=== PATIENT | male | born 1950 | race Caucasian/White ===

== ENCOUNTER 2019-07-12 00:33 | Inpatient (IN) | payer MEDICARE, OTHER ==
[~2019-07-12] VITALS: Ht 193 cm; Wt 104.3 kg
[~2019-07-12 00:33] MED LIST: ASPIR 8181 MG PO; ASPIRIN ENTERI325 MG PO; BENICAR HCT 401 EAC1 PO; BENICAR20 MG PO; EFFIENT10 MG PO; LIPITOR40 MG PO; METOPROLOL SUCC50 MG PO; PROTONIX40 MG PO; SUCRALFATE1 GM PO; TOPROL XL50 MG PO; ZESTRIL20 MG PO
[2019-07-12] MEDS ORDERED: HYDROCODONE/APAP 10MG-325MG TAB PO ONE (01:00)
[2019-07-12] MEDS ORDERED: ONDANSETRON HCL 4 MG ORAL DISINTEGRATING TAB PO ONE (01:15)
--- NOTE | 2019-07-12 02:12 | Diagnostic Imaging Report ---
EXAMINATION: Head and cervical spine CT without contrast. HISTORY: Status post fall, head trauma, head and neck pain, shoulder pain COMPARISON: Head CT 09/23/2015 TECHNIQUE: Multidetector axial images were obtained without contrast from the foramen magnum to the vertex and through the cervical spine. The images were reconstructed using brain and bone algorithms. Thin section brain images were reformatted into coronal and sagittal planes. Dose modulation, iterative reconstruction, and/or weight based adjustment of the mA/kV was utilized to reduce the radiation dose to as low as reasonably achievable. HEAD CT FINDINGS: Skull/scalp: Heterogeneous bone marrow density throughout the calvarium, which may be related to osteopenia, no significantly changed compared to head CT of 09/23/2015. Parenchyma: Diffuse corticomedullary hypodensities, most likely age-related minimal chronic microvascular ischemic changes. Otherwise no abnormal densities. No mass, hemorrhage or CT evidence of acute vascular insult. Brain volume: Normal for age. Ventricles: No hydrocephalus or displacement. Arteries: No density suggestive of thrombus. Dural sinuses: No abnormal density. Extra-axial spaces: No abnormal density. Foramen magnum: No mass, Chiari malformation, or basilar invagination. Sella: No obvious mass. Paranasal/mastoid sinuses: Imaged portions unremarkable. CERVICAL SPINE CT FINDINGS: Alignment:Reversal of the cervical lordosis centered at C4-C5. Minimal retrolisthesis at C5-6.. Soft tissues: Normal. Vertebrae: Normal height and density. No acute fracture, infection or neoplasm. Degenerative changes: C1-C2: Normal C2-C3: Normal C3-C4: Bilateral uncovertebral and facet arthrosis minimally on the right side. Minimal right foraminal narrowing. C4-C5: Small disc osteophyte complex formation asymmetric to the right. Uncovertebral arthroses mainly on the right. Mild right foraminal narrowing. C5-C6: Small disc osteophyte formation, bilateral uncovertebral arthrosis. Moderate right and moderately severe left foraminal stenosis. C6-C7: Uncovertebral arthrosis without stenosis. C7-T1: Normal Incidental findings: Prominent ossification of the right styloid process reaching the level of the hyoid bone on the right side. IMPRESSION: Head CT: 1. No acute postraumatic intracranial hemorrhage. 2. Mild chronic microvascular ischemic changes. Cervical spine CT: 1. No acute fractures or dislocations. 2. Chronic degenerative changes as described. Note: Acute post traumatic spinal cord, vascular or ligamentous injury cannot adequately be assessed with CT. Signed by: Dr. Quin Magana M.D. on 07/12/2019 2:09 AM
[2019-07-12] MEDS ORDERED: FENTANYL CITRATE/PF 100MCG/2 ML INJ IV ONE ×2 (02:45→03:15)
--- NOTE | 2019-07-12 02:46 | Diagnostic Imaging Report ---
X-ray left elbow 2 views HISTORY: Pain. COMPARISON: None available. FINDINGS: Bones: No acute displaced fracture. Osseous alignment is within normal limits. Olecranon and epicondylar enthesophytes. Joints: The joint spaces are well-maintained. Soft tissues: The soft tissues appear unremarkable. IMPRESSION: No acute radiographic osseous abnormality. Olecranon and epicondylar enthesopathy. Signed by: Dwaine Schmitz DO on 07/12/2019 2:43 AM
--- NOTE | 2019-07-12 02:49 | Diagnostic Imaging Report ---
X-RAY LEFT SHOULDER 3 VIEWS HISTORY: Pain. COMPARISON: None available. FINDINGS: Bones: Probable nondisplaced fracture fragment at the anterior inferior glenoid rim. Osseous alignment is within normal limits. Joints: The humeral head is dislocated anteroinferiorly in relation to the glenoid. Soft tissues: The soft tissues appear unremarkable. IMPRESSION: Anteroinferior shoulder dislocation. Suspect anteroinferior glenoid rim fracture (Bankart injury). Signed by: Dwaine Schmitz DO on 07/12/2019 2:45 AM
--- NOTE | 2019-07-12 02:50 | Diagnostic Imaging Report ---
EXAMINATION: CHEST SINGLE (PORTABLE) INDICATION: Fall COMPARISON: None FINDINGS: AP view TUBES and LINES: None. LUNGS: Lungs are well inflated. Lungs are clear. There is no evidence of pneumonia or pulmonary edema. PLEURA: No pleural effusion or pneumothorax. HEART AND MEDIASTINUM: The cardiomediastinal silhouette is unremarkable. BONES AND SOFT TISSUES: Anteroinferior left shoulder dislocation. Suspect ossific fragment at the anterior inferior glenoid rim. No acute osseous lesion. Soft tissues are unremarkable. UPPER ABDOMEN: No free air under the diaphragm. IMPRESSION: No acute intrathoracic radiographic abnormality. Anteroinferior shoulder dislocation. Suspect anteroinferior glenoid rim fracture (Bankart injury). Signed by: Dwaine Schmitz DO on 07/12/2019 2:46 AM
[2019-07-12] MEDS ORDERED: ETOMIDATE 2 MG/ML 10 ML INJ IV STA (03:10)
--- NOTE | 2019-07-12 03:20 | NUR ---
PT WIFES SIGNED CONSENT FOR CONSCIOUS SEDATION - CONSENT PLACED IN CHART
--- NOTE | 2019-07-12 03:28 | NUR ---
PT PLACED IN CONSCIOUS SEDATION; DR SILVA IN ROOM TO ADMINISTER 10MG ETOMIDATE IVP AT 0328; PT ALSO GIVEN 100MCG FENTANYL IVP; RESPIRATORY IN ROOM READY WITH SUCTION AND AMBUBAG; LT SHOULDER REDUCED AND PLACED IN SHOULDER IMMOBILIZER; POST REDUCTION XRAYS PENDING
[2019-07-12] MEDS ORDERED: ONDANSETRON HCL INJ 2MG/ML 2ML 2 MG/ML VIAL ONE (03:43)
[2019-07-12 03:54] LABS: BASOPHILS % 0.3 % (0.0-1.0); EOSINOPHILS % 0.3 % (0.0-6.0); HEMATOCRIT 30.4 % (38.2-49.6); HEMOGLOBIN 10.8 g/dL (14.0-18.0); LYMPHOCYTES # (AUTO) 1.7 (1.0-3.2); LYMPHOCYTES % 14.6 % (18.0-39.1); MEAN CORPUSCULAR HEMOGLOBIN 31.9 pg (28-32); MEAN CORPUSCULAR HGB CONC 35.5 g/dL (31-35); MEAN CORPUSCULAR VOLUME 89.7 fL (81-99); MONOCYTES # (AUTO) 0.5 (0.2-0.8); MONOCYTES % 4.4 % (4.4-11.3); NEUTROPHILS # (AUTO) 9.3 (2.1-6.9); PLATELET COUNT 233 x10e3/uL (140-360); RED BLOOD COUNT 3.39 x10e6/uL (4.3-5.7); RED CELL DISTRIBUTION WIDTH 11.8 % (11.7-14.4)
[2019-07-12 04:05] LABS: INR 0.96; PROTHROMBIN TIME 13.3 seconds (11.9-14.5)
[2019-07-12 04:06] LABS: PARTIAL THROMBOPLASTIN TIME 24.5 seconds (23.8-35.5)
[2019-07-12 04:13] LABS: ANION GAP 14.1 mmol/L (8-16); BLOOD UREA NITROGEN 6 mg/dL (7-26); BUN/CREATININE RATIO 13 (6-25); CALCIUM 8.8 mg/dL (8.4-10.2); CARBON DIOXIDE 17 mmol/L (22-29); CHLORIDE 80 mmol/L (98-107); CREATININE, SERUM 0.47 mg/dL (0.72-1.25); EST GLOMERULAR FILTRATION RATE > 60 ML/MIN (60-); GLUCOSE 122 mg/dL (74-118); POTASSIUM 3.1 mmol/L (3.5-5.1)
[2019-07-12 04:15] LABS: SODIUM 108 mmol/L (136-145)
--- NOTE | 2019-07-12 04:28 | Diagnostic Imaging Report ---
X-RAY LEFT SHOULDER 1 VIEW HISTORY: Pain. COMPARISON: Left shoulder radiographs 07/12/2019 FINDINGS: Bones: No acute displaced fracture. Suspect a small ossific fragment along the inferior glenoid rim. Osseous alignment is within normal limits. Joints: The joint spaces are well-maintained. Resolution of left shoulder dislocation. Mild degenerative changes in the acromioclavicular joint. Soft tissues: The soft tissues appear unremarkable. IMPRESSION: Normal shoulder alignment. Suspect inferior glenoid fracture (bony Bankart lesion). Mild degenerative changes in the acromioclavicular joint. Signed by: Dwaine Schmitz DO on 07/12/2019 4:25 AM
[2019-07-12 04:50] LABS: ANION GAP 17.3 mmol/L (8-16); BLOOD UREA NITROGEN 13 mg/dL (7-26); BUN/CREATININE RATIO 12 (6-25); CALCIUM 9.2 mg/dL (8.4-10.2); CARBON DIOXIDE 21 mmol/L (22-29); CHLORIDE 86 mmol/L (98-107); EST GLOMERULAR FILTRATION RATE > 60 ML/MIN (60-); GLUCOSE 119 mg/dL (74-118); POTASSIUM 3.3 mmol/L (3.5-5.1)
[2019-07-12 04:57] LABS: CREATININE, SERUM 1.06 mg/dL (0.72-1.25)
[2019-07-12 04:58] LABS: SODIUM 121 mmol/L (136-145)
[2019-07-12] MEDS ORDERED: MULTIVITAMINS- 12 INJECTION 10 ML, FOLIC ACID MDV 5 MG, THIAMINE HCL INJ 100 MG in SODI... IV ONE (05:15)
[2019-07-12] MEDS ORDERED: POTASSIUM CHLORIDE 20 MEQ TAB CR PO STA (05:19)
[2019-07-12] MEDS ORDERED: SODIUM CHLORIDE FLUSH 10 ML SYR INJ PRN (05:30)
--- OUTSIDE RECORDS SUMMARY | 2019-07-12 05:40 | XMS REPORT ---
Author Author [facility] Address Unknown Phone Unavailable Care Team Providers Care Hog Ringer Name Role Phone Annabelle SILVA Unavailable Unavailable Problems This patient has no known problems. Allergies, Adverse Reactions, Alerts This patient has no known allergies or adverse reactions. Medications This patient has no known medications. Results Test Description Test Time Test Comments Text Results Atomic Results Result Comments SHOULDER LEFT 1 VIEW 2019-07-12 04:24:00 [facility] [address] [address] Patient Name: REBEL GUADALUPE JR MR #: [id number] : 1950 Age/Sex: 68/M Req #: [id number] [facility] Physician: Ordered by: PREMA SILVA MD Report #: [id number] Location: ER Room/Bed: Procedure: [id number] DX/SHOULDER LEFT 1 VIEW Exam Date: Exam Time: REPORT STATUS: Signed X-RAY LEFT SHOULDER 1 VIEW HISTORY: Pain. COMPARISON: Left shoulder radiographs 07/12/2019 FINDINGS: Bones: No acute displaced fracture. Suspect a small ossific fragment along the inferior glenoid rim. Osseous alignment is within normal limits. Joints: The joint spaces are well-maintained. Resolution of left shoulder dislocation. Mild degenerative changes in the acromioclavicular joint. Soft tissues: The soft tissues appear unremarkable. IMPRESSION: Normal shoulder alignment. Suspect inferior glenoid fracture (bony Bankart lesion). Mild degenerative changes in the acromioclavicular joint. Signed by: Dwaine Schmitz DO on 07/12/2019 4:25 AM Dictated By: DWAINE SCHMITZ DO 4 Transcribed By: BHAVANI on 07/12/19424 COPY TO: PREMA SILVA MD CHEST SINGLE (PORTABLE) 2019-07-12 02:45:00 [address] [address] Patient Name: REBEL GUADALUPE JR MR #: [id number] : 1950 Age/Sex: 68/M Req #: [id number] Adm Physician: Ordered by: PREMA SILVA MD Report #: [id number] Location: ER Room/Bed: Procedure: [id number] DX/CHEST SINGLE (PORTABLE) Exam Date: 07/12/19 Exam Time: 0200 REPORT STATUS: Signed EXAMINATION: CHEST SINGLE (PORTABLE) INDICATION: Fall COMPARISON: None FINDINGS: AP view TUBES and LINES: None. LUNGS: Lungs are well inflated. Lungs are clear. There is no evidence of pneumonia or pulmonary edema. PLEURA: No pleural effusion or pneumothorax. HEART AND MEDIASTINUM: The cardiomediastinal silhouette is unremarkable. BONES AND SOFT TISSUES: Anteroinferior lef t shoulder dislocation. Suspect ossific fragment at the anterior inferior glenoid rim. No acute osseous lesion. Soft tissues are unremarkable. UPPER ABDOMEN: No free air under the diaphragm. IMPRESSION: No acute intrathoracic radiographic abnormality. Anteroinferior shoulder dislocation. Suspect anteroinferior glenoid rim fracture (Bankart injury). Signed by: Dwaine Schmitz DO on 07/12/2019 2:46 AM Dictated By: DWAINE SCHMITZ DO 5 Transcribed By: BHAVANI on 07/12/19245 COPY TO: PREMA CHEN MD SHOULDER LEFT COMPLETE 2019-07-12 02:43:00 [facility] [address] [address] Patient Name: REBEL GUADALUPE JR MR #: [id number] : 1950 Age/Sex: 68/M Req #: [id number] Adm Physician: Ordered by: PREMA SILVA MD Report #: [id number] Location: ER Room/Bed: Procedure: [id number] DX/SHOULDER LEFT COMPLETE Exam Date: 07/12/19 Exam Time: 0200 REPORT STATUS: Signed X-RAY LEFT SHOULDER 3 VIEWS HISTORY: Pain. COMPARISON: None available. FINDINGS: Bones: Probable nondisplaced fracture fragment at the anterior inferior glenoid rim. Osseous alignment is within normal limits. Joints: The humeral head is dislocated anteroinferiorly in relation to the glenoid. Soft tissues: The soft tissues appear unremarkable. IMPRESSION: Anteroinferior shoulder dislocation. Suspect anteroinferior glenoid rim fracture (Bankart injury). Signed by: Dwaine Schmitz DO on 07/12/2019 2:45 AM Dictated By: DWAINE SCHMITZ DO 4 Transcribed By: BHAVANI on 07/12/19244 COPY TO: PREMA SILVA MD ELBOW LEFT AP LAT 2019-07-12 02:41:00 [address] [address] Patient Name: REBEL GUADALUPE JR MR #: [id number] : 1950 Age/Sex: 68/M Req #: [id number] Adm Physician: Ordered by: PREMA SILVA MD Report #: [id number] Location: ER Room/Bed: Procedure: [id number] DX/ELBOW LEFT AP LAT Exam Date: 07/12/19 Exam Time: 0200 REPORT STATUS: Signed X-ray left elbow 2 views HISTORY: Pain. COMPARISON: None available. FINDINGS: Bones: No acute displaced fracture. Osseous alignment is within normal limits. Olecranon and epicondylar enthesophytes. Joints: The joint spaces are well-maintained. Soft tissues: The soft tissues appear unremarkable. IMPRESSION: No acute radiographic osseous abnormality. Olecranon and epicondylar enthesopathy. Signed by: Dwaine Schmitz DO on 07/12/2019 2:43 AM Dictated By: DWAINE SCHMITZ DO 2 Transcribed By: BHAVANI on 07/12/19242 COPY TO: PREMA SILVA MD CT BRAIN WO 2019-07-12 02:01:00 [place] [address] Patient Name: REBEL GUADALUPE JR MR #: [id number] : 1950 Age/Sex: 68/M Req #: [id number] Adm Physician: Ordered by: PREMA SILVA MD Report #: [id number] Location: ER Room/Bed: Procedure: [id number] CT/CT BRAIN WO Exam Date: Exam Time: REPORT STATUS: Signed EXAMINATION: Head and cervical spine CT without contrast. HISTORY: Status post fall, head trauma, head and neck pain, shoulder pain COMPARISON: Head CT 09/23/2015 TECHNIQUE: Multidetector axial images were obtained without contrast from the foramen magnum to the vertex and through the cervical spine. The images were reconstructed using brain and bone algorithms. Thin section brain images were reformatted into coronal and sagittal planes. Dose modula tion, iterative reconstruction, and/or weight based adjustment of the mA/kV was utilized to reduce the radiation dose to as low as reasonably achievable. HEAD CT FINDINGS: Skull/scalp: Heterogeneous bone marrow density throughout the calvarium, which may be related to osteopenia, no significantly changed compared to head CT of 09/23/2015. Parenchyma: Diffuse corticomedullary hypodensities, most likely age-related minimal chronic microvascular ischemic changes. Otherwise no abnormal densities. No mass, hemorrhage or CT evidence of acute vascular insult. Brain volume: Normal for age. Ventricles: No hydrocephalus or displacement. Arteries: No density suggestive of thrombus. Dural sinuses: No abnormal density. Extra-axial spaces: No abnormal density. Foramen magnum: No mass, Chiari malformation, or basilar invagination. Sella: No obvious mass. Paranasal/mastoid sinuses: Imaged portions unremarkable. CERVICAL SPINE CT FINDINGS: Alignment:Reversal of the cervical lordosis centered at C4-C5. Minimal retrolisthesis at C5-6.. Soft tissues: Normal. Vertebrae: Normal height and density. No acute fracture, infection or neoplasm. Degenerative changes: C1-C2: Normal C2-C3: Normal C3-C4: Bilateral uncovertebral and facet arthrosis minimally on the right side. Minimal right foraminal narrowing. C4-C5: Small disc osteophyte complex formation asymmetric to the right. Uncovertebral arthroses mainly on the right. Mild right foraminal narrowing. C5-C6: Small disc osteophyte formation, bilateral uncovertebral arthrosis. Moderate right and moderately severe left foraminal stenosis. C6-C7: Uncovertebral arthrosis without stenosis. C7-T1: Normal Incidental findings: Prominent ossification of the right styloid process reaching the level of the hyoid bone on the right side. IMPRESSION: Head CT: 1. No acute postraumatic intracranial hemorrhage. 2. Mild chronic microvascular ischemic changes. Cervical spine CT: 1. No acute fractures or dislocations. 2. Chronic degenerative changes as described. Note: Acute post traumatic spinal cord, vascular or ligamentous injury cannot adequately be assessed with CT. Signed by: Dr. Lion Magana M.D. on 07/12/2019 2:09 AM Dictated By: YOEL MAGANA MD 8 Transcribed By: BHAVANI on 07/12/19208 COPY TO: PREMA SILVA MD CT CERVICAL SPINE WO 2019-07-12 02:01:00 [address] [address] Patient Name: REBEL GUADALUPE JR MR #: [id number] : 1950 Age/Sex: 68/M Req #: [id number] Adm Physician: Ordered by: PREMA SILVA MD Report #: [id number] Location: ER Room/Bed: Procedure: [id number] CT/CT CERVICAL SPINE WO Exam Date: Exam Time: REPORT STATUS: Signed EXAMINATION: Head and cervical spine CT without contrast. HISTORY: Status post fall, head trauma, head and neck pain, shoulder pain COMPARISON: Head CT 09/23/2015 TECHNIQUE: Multidetector axial images were obtained without contrast from the foramen magnum to the vertex and through the cervical spine. The images were reconstructed using brain and bone algorithms. Thin section brain images were reformatted into coronal and sagittal planes. Dose modulation, iterative reconstruction, and/or weight based adjustment of the mA/kV was utilized to reduce the radiation dose to as low as reasonably achievable. HEAD CT FINDINGS: Skull/scalp: Heterogeneous bone marrow density throughout the calvarium, which may be related to osteopenia, no significantly changed compared to head CT of 09/23/2015. Parenchyma: Diffuse corticomedullary hypodensities, most likely age-related minimal chronic microvascular ischemic changes. Otherwise no abnormal densities. No mass, hemorrhage or CT evidence of acute vascular insult. Brain volume: Normal for age. Ventricles: No hydrocephalus or displacement. Arteries: No density suggestive of thrombus. Dural sinuses: No abnormal density. Extra-axial spaces: No abnormal density. Foramen magnum: No mass, Chiari malformation, or basilar invagination. Sella: No obvious mass. Paranasal/mastoid sinuses: Imaged portions unremarkable. CERVICAL SPINE CT FINDINGS: Alignment:Reversal of the cervical lordosis centered at C4-C5. Minimal retrolisthesis at C5-6.. Soft tissues: Normal. Vertebrae: Normal height and density. No acute fracture, infection or neoplasm. Degenerative changes: C1-C2: Normal C2-C3: Normal C3-C4: Bilateral uncovertebral and facet arthrosis minimally on the right side. Minimal right foraminal narrowing. C4-C5: Small disc osteophyte complex formation asymmetric to the right. Uncovertebral arthroses mainly on the right. Mild right foraminal narrowing. C5-C6: Small disc osteophyte formation, bilateral uncovertebral arthrosis. Moderate right and moderately severe left foraminal stenosis. C6-C7: Uncovertebral arthrosis without stenosis. C7-T1: Normal Incidental findings: Prominent ossification of the right styloid process reaching the level of the hyoid bone on the right side. IMPRESSION: Head CT: 1. No acute postraumatic intracranial hemorrhage. 2. Mild chronic microvascular ischemic changes. Cervical spine CT: 1. No acute fractures or dislocations. 2. Chronic degenerative changes as described. Note: Acute post traumatic spinal cord, vascular or ligamentous injury cannot adequately be assessed with CT. Signed by: Dr. Lion Magana M.D. on 07/12/2019 2:09 AM Dictated By: LION MAGANA MD 8 Transcribed By: BHAVANI on 07/12/19208 COPY TO: PREMA SILVA MD
[2019-07-12] MEDS: ONDANSETRON HCL INJ 2MG/ML 2ML 2 MG/ML VIAL IV PRN ×3 (06:25→20:13)
[2019-07-12] MEDS: HYDROMORPHONE 1MG/1ML INJ IV PRN ×3 (06:25→20:14)
[2019-07-12] MEDS ORDERED: SODIUM CHLORIDE 0.9% 1000ML 1,000 ML IV SCH (07:15)
[2019-07-12] MEDS ORDERED: PROMETHAZINE 25MG/ NS 50ML (IV) IV PRN (07:15)
[2019-07-12 07:50] VITALS: BP 146/71
[2019-07-12 09:00] VITALS: BP 146/71
[2019-07-12] MEDS ORDERED: PANTOPRAZOLE SODIUM 40 MG SUSPDR.PKT PO SCH (09:00)
[2019-07-12] MEDS ORDERED: SUCRALFATE 1 GM TAB PO SCH (09:00)
[2019-07-12] MEDS ORDERED: LOSARTAN POTASSIUM 100 MG TAB PO SCH (09:00)
[2019-07-12] MEDS ORDERED: AMLODIPINE BESYL5 MG PO (09:43)
[2019-07-12] MEDS ORDERED: LOSARTAN POTAS100 MG PO (09:43)
[2019-07-12] MEDS ORDERED: ATORVASTATIN CA20 MG PO (09:43)
--- NOTE | 2019-07-12 10:53 | NUR ---
ORTHOPEDIC CONSULTATION 68 yo right hand dominant male presents to the ED after a mechanical fall with complaints of left shoulder pain. He was diagnosed with a left shoulder dislocation which was reduced in the ED by Dr. Merlos. Patient admitted for hyponatremia. Denies previous injury to the shoulder, numbness, parethesias or loss of distal motor function. Denies pain in any other extremity PMdHx: HTN, CAD SurgHx: Stents, Appendectomy Allergies: Diphenhydramine FamHx: Non-contributory SocHx: Neg Tob, EtOH - 6 beers per day, Neg Drug Meds: See reconciliation VS T 96.2, HR 63 RR 20 BP 146/71 O2 96% Gen: NAD Left Shoulder - no open lesions or sores, no gross deformity Motor: + AIN, PIN, Radial, Median, Ulnar Sensation grossly intact, Axillary sensation intact Pulse + Radial, good capillary refill Compartments soft Xrays demonstrated left anterior shoulder dislocation Post reduction Xrays demonstrate 1 view of a reduced shoulder dislocation 68 yo M with left shoulder dislocation s/p closed reduction Plan for MRI to evaluate for rotator cuff and hillsachs lesion prior to discharge Analgesics Continue in sling NWB LUE DVT Prophylaxis while in hospital May follow up in office as outpatient within the week No present acute orthopedic intervention required at this time. DO ANA [facility]
[2019-07-12 11:53] LABS: ALANINE AMINOTRANSFERASE 21 IU/L (0-55); ALBUMIN 3.3 g/dL (3.5-5.0); ALKALINE PHOSPHATASE 45 IU/L (40-150); BLOOD UREA NITROGEN 13 mg/dL (7-26); BUN/CREATININE RATIO 14 (6-25); CALCIUM 8.9 mg/dL (8.4-10.2); CARBON DIOXIDE 18 mmol/L (22-29); CHLORIDE 87 mmol/L (98-107); CREATININE, SERUM 0.91 mg/dL (0.72-1.25); EST GLOMERULAR FILTRATION RATE > 60 ML/MIN (60-); GLUCOSE 96 mg/dL (74-118); MAGNESIUM 1.6 MG/DL (1.3-2.1); PHOSPHORUS 4.5 MG/DL (2.3-4.7)
[2019-07-12 11:55] LABS: SODIUM 119 mmol/L (136-145)
[2019-07-12] MEDS ORDERED: SODIUM CHLORIDE 1 GM TAB PO SCH (12:00)
[2019-07-12 12:07] VITALS: BP 115/63
[2019-07-12] MEDS ORDERED: FUROSEMIDE INJ 10 MG/ML 2 ML VIAL IV ONE (12:30)
[2019-07-12] MEDS: METOPROLOL SUCCINATE 50 MG TAB XL PO SCH (12:51)
--- NOTE | 2019-07-12 13:36 | Consultation ---
DATE OF CONSULTATION: 07/12/2019 HISTORY OF PRESENT ILLNESS: A 68-year-old gentleman, who apparently tripped and fell and has fractured his arm, currently the left arm is in sling. Renal consult for management of hyponatremia. Initial labs showed sodium 108 at 3:15 a.m. this morning with a creatinine of 0.47 and a bicarb of 17 and at 4:21 a.m. this morning repeat labs show sodium 121, potassium 3.3, and creatinine 1.06. The patient is currently lying supine. by bedside. No apparent distress. Has prior history of hypertension, coronary artery disease, status post PCI and stenting. He drinks about 8 to 12 cans of beer every night and his diet is basically breakfast and sometimes lunch. He usually skips dinner. He currently denies any headache, fever, or chest pains. Feels weak though and pain in his left arm. ALLERGIES: TO DIPHENHYDRAMINE. CURRENT MEDICATIONS: The patient is on normal saline with multivitamins and thiamine. He is also on IV NS at 70 mL an hour, losartan 100 mg daily, metoprolol 50 mg daily, ondansetron p.r.n., promethazine p.r.n., and Carafate 1 g p.o. b.i.d. PHYSICAL EXAMINATION: GENERAL: Awake, alert, oriented, lying supine, in no apparent distress. VITAL SIGNS: Most recent blood pressure is 146/71, pulse rate is 71, afebrile, and oxygen saturation 97% on room air. HEAD AND NECK: Cornea clear. Oral mucosa moist. There is a bruise noted on his forehead. No hematoma. Neck veins flat. LUNGS: Clear to auscultation. No rales or rhonchi. HEART: S1 and S2 audible. ABDOMEN: Otherwise soft, nontender, and distended. No apparent visceromegaly. EXTREMITIES: Lower extremity examination shows no edema. IMPRESSION: Hyponatremia, hypokalemia, mild renal tubular acidosis. Repeat sodium level within an hour was 121. I will stop IV normal saline. Decrease banana bag to 50 mL an hour. Discontinue losartan. Obtain stat chemistries including magnesium, phosphorus, uric acid, and a potassium level. Nurse to call me with the results. Please see orders. MD [place] Blood/WALDO /[id number]
--- NOTE | 2019-07-12 15:05 | Diagnostic Imaging Report ---
TECHNIQUE: Magnetic resonance imaging of the LEFT SHOULDER was performed WITHOUT injected contrast. HISTORY: Dislocation, fell, tripped, rotator cuff tear and hill sachs lesion COMPARISON: Left shoulder radiographs from earlier the same day. FINDINGS: MUSCLES AND TENDONS: Rotator Cuff: Tendons: Supraspinatus and Infraspinatus: Diffuse articular sided partial-thickness tearing, foci of high-grade tearing. Focal low-grade bursal sided partial-thickness tearing of the conjoined portion. No complete tear or tendon retraction. Teres Minor: Intact Subscapularis: Intact fibers at the lesser tuberosity, full-thickness tearing, near complete to complete of the biceps cristino adjacent to the greater tuberosity insertion. Muscles: No focal muscle atrophy. Biceps Tendon: The long head of the biceps tendon is intact and within the intertubercular groove. GLENOHUMERAL JOINT: Glenoid Labrum: Diffuse complex tearing and attenuation of the inferior aspects of the labrum. Additional mild complex tearing and attenuation of the posterosuperior and posterior labrum. Articular Cartilage: Diffuse intermediate to high-grade erosion. Mild osteochondral impaction at the anteroinferior glenoid. Joint Fluid: Small nonspecific joint fluid, extravasating into the adjacent soft tissues. ACROMIOCLAVICULAR JOINT: Moderate hypertrophic degenerative changes of the acromioclavicular joint. Small nonspecific effusion. BONE: The acromion is unremarkable. No focal or infiltrative bone marrow replacing abnormality. No acute fracture. Subtle impaction at the posterior lateral aspect of the humeral head with minimal adjacent bone marrow edema. SOFT TISSUES: Extensive regional soft tissue edema. The inferior glenohumeral ligaments are not visible, there appears to be a lax portion avulsed from the humerus (series 3 image 16). IMPRESSION: 1. Findings compatible with recent anterior shoulder dislocation, including: extensive regional soft tissue edema, mild impaction injuries at the anteroinferior glenoid and posterolateral humeral head, complex tearing of the inferior portions of the labrum, including the anteroinferior aspect. 2. Humeral avulsion of the glenohumeral ligament (HAGL). 3. High-grade partial-thickness tearing of the supraspinatus and infraspinatus tendons. 4. Complete tearing of the biceps cristino adjacent to the greater tuberosity. Signed by: Dr. Frantz Devine D.O., M.M.M. on 07/12/2019 3:02 PM
[2019-07-12 15:34] VITALS: BP 108/58
[2019-07-12] MEDS: SODIUM CHLORIDE 1 GM TAB PO SCH ×2 (15:54→20:13)
--- NOTE | 2019-07-12 16:04 | NUR ---
NOTIFIED MD SUAZO OF PT MRI RESULTS CLEARED PT FOR DC. ORDERED TO FOLLOW UP AT HIS OFFICE UPON DC
[2019-07-12 17:34] LABS: ANION GAP 13.8 mmol/L (8-16); BLOOD UREA NITROGEN 14 mg/dL (7-26); BUN/CREATININE RATIO 15 (6-25); CALCIUM 8.6 mg/dL (8.4-10.2); CARBON DIOXIDE 23 mmol/L (22-29); CHLORIDE 90 mmol/L (98-107); CREATININE, SERUM 0.94 mg/dL (0.72-1.25); EST GLOMERULAR FILTRATION RATE > 60 ML/MIN (60-); GLUCOSE 108 mg/dL (74-118); POTASSIUM 3.8 mmol/L (3.5-5.1); SODIUM 123 mmol/L (136-145)
[2019-07-12] MEDS: SODIUM BICARBONATE 650 MG TAB PO SCH (17:38)
--- NOTE | 2019-07-12 17:39 | NUR ---
MD ASHLEY AWARE OF [address] [facility] NO ORDERS RECEIVED
[2019-07-12] MEDS ORDERED: ETOMIDATE 2 MG/ML 10 ML INJ IV ONE (17:40)
[2019-07-12 20:00] VITALS: BP 124/63
[2019-07-12 21:00] VITALS: BP 124/63
[2019-07-13] VITALS (7 sets, daily range): BP systolic 131–149; BP diastolic 63–80
--- NOTE | 2019-07-13 00:15 | NUR ---
Assisted to use rest room.pain medication given.stable condition.left arm supported with sling.bed locked and in lowest position.phone and call light within reach.instructed to call for assistance as needed.
[2019-07-13] MEDS: ONDANSETRON HCL INJ 2MG/ML 2ML 2 MG/ML VIAL IV PRN ×3 (00:30→12:53)
[2019-07-13] MEDS: HYDROMORPHONE 1MG/1ML INJ IV PRN ×3 (00:31→12:53)
--- NOTE | 2019-07-13 01:34 | History and Physical ---
68-year-old male, status post fall, comes in with shoulder dislocation. HISTORY OF PRESENTING ILLNESS: This is Mr. Patel Ramey who went to dinner and came home, was walking towards his car, and in the parking lot sustained a fall and the patient landed on the concrete surface, on the head and this occurred at home. The patient tripped over a log and dislocated his left shoulder. The patient is here for shoulder pain and also was found to have hyponatremia on admission. PAST MEDICAL HISTORY: History of coronary artery disease, history of hypertension, and history of hyperlipidemia. PAST SURGICAL HISTORY: History of appendectomy, history of cardiac stents placed, and history of hyperlipidemia too. MEDICATIONS: He takes at home are atorvastatin 20 mg daily, amlodipine 5 mg daily, Benicar 40 mg with hydrochlorothiazide 20, and metoprolol succinate 50 mg ER. SOCIAL HISTORY: Positive for EtOH. Negative for smoking. The patient consumes about 6 to 7 beers a day. FAMILY HISTORY: History of hypertension and coronary artery disease. REVIEW OF SYSTEMS: Negative for chest pain or shortness of breath. Positive for nausea. No vomiting. No diarrhea. No constipation. No rectal bleeding. No hematochezia. No hematemesis. No diplopia. No blurry vision. No history of cognitive deficits, except the patient was drunk. PHYSICAL EXAMINATION: VITAL SIGNS: Temperature is 99.2, blood pressure is 108/58, and pulse oximetry of 97% on room air. HEENT: The patient with ecchymosis present in the face, shoulder with contusion. EXTREMITIES: No clubbing, no cyanosis, no edema. ABDOMEN: Nontender and nondistended. LUNGS: Clear to auscultation bilaterally. CVS: S1 and S2 normal. Regular rate and rhythm. LABORATORY VALUES: Initial chemistry showed a sodium of 108, repeat showed 121, repeat again was 119 and repeat again was 123. BUN and creatinine were 14 and 0.94. IMAGING STUDIES: Shoulder MRI shows findings of recent anterior shoulder dislocation including extensive regional soft tissue edema, humeral avulsion of the glenohumeral ligament, high-grade partial thickness of the supraspinatus and infraspinatus tendon and complete tearing of the biceps cristino adjacent to the greater tuberosity. Elbow x-ray was no acute radiographic abnormalities. Brain CT shows no acute posttraumatic intracranial hemorrhage, mild chronic microvascular ischemic changes. Cervical spine CT shows no acute posttraumatic intracranial hemorrhage and chronic degenerative changes and shoulder as mentioned above. ASSESSMENT: 1. Status post fall with shoulder dislocation. The patient is scheduled for reduction surgery with Dr. Mckeon. 2. Hyponatremia and hypokalemia. The patient's repeat sodium has improved. Normal saline was given we decrease banana bag to 15 mL per hour. The patient was continued on his medications. The renal consult has been done. Sodium will be repeated on a regular basis for hyponatremia. DIAGNOSES: Hyponatremia, hypokalemia, renal tubular acidosis, hypertension, hyperlipidemia, history of alcohol intake, and intoxication and also history of fall with shoulder dislocation. Further recommendation is depending on clinical course. The patient currently is on a banana bag and on a bicarb drip. Pain medication has been hydromorphone q.3 hours and also metoprolol 50 mg. Further recommendation per clinical course. We will continue to monitor the patient. MD MARIA ALEJANDRA Anderson/MODL /[id number]
[2019-07-13 06:19] LABS: BASOPHILS % 0.2 % (0.0-1.0); EOSINOPHILS # (AUTO) 0.1 (0.0-0.4); EOSINOPHILS % 0.9 % (0.0-6.0); HEMATOCRIT 26.9 % (38.2-49.6); HEMOGLOBIN 9.5 g/dL (14.0-18.0); LYMPHOCYTES # (AUTO) 1.3 (1.0-3.2); LYMPHOCYTES % 24.2 % (18.0-39.1); MEAN CORPUSCULAR HEMOGLOBIN 31.7 pg (28-32); MEAN CORPUSCULAR HGB CONC 35.3 g/dL (31-35); MEAN CORPUSCULAR VOLUME 89.7 fL (81-99); MONOCYTES # (AUTO) 0.6 (0.2-0.8); MONOCYTES % 10.6 % (4.4-11.3); NEUTROPHILS # (AUTO) 3.4 (2.1-6.9); NEUTROPHILS % 63.7 % (38.7-80.0); PLATELET COUNT 148 x10e3/uL (140-360); RED CELL DISTRIBUTION WIDTH 11.9 % (11.7-14.4)
[2019-07-13 06:34] LABS: ALANINE AMINOTRANSFERASE 20 IU/L (0-55); ALBUMIN 2.8 g/dL (3.5-5.0); ALBUMIN/GLOBULIN RATIO 0.9 (0.8-2.0); ALKALINE PHOSPHATASE 45 IU/L (40-150); ANION GAP 8.8 mmol/L (8-16); BLOOD UREA NITROGEN 12 mg/dL (7-26); BUN/CREATININE RATIO 14 (6-25); CALCIUM 8.6 mg/dL (8.4-10.2); CARBON DIOXIDE 27 mmol/L (22-29); CHLORIDE 97 mmol/L (98-107); CREATININE, SERUM 0.88 mg/dL (0.72-1.25); EST GLOMERULAR FILTRATION RATE > 60 ML/MIN (60-); GLUCOSE 106 mg/dL (74-118); POTASSIUM 3.8 mmol/L (3.5-5.1); SODIUM 129 mmol/L (136-145)
--- NOTE | 2019-07-13 06:50 | NUR ---
Bed side shift report given to oncoming Rn.stable condition.
[2019-07-13] MEDS: SODIUM CHLORIDE 1 GM TAB PO SCH ×3 (08:48→20:06)
[2019-07-13] MEDS: SODIUM BICARBONATE 650 MG TAB PO SCH ×2 (08:48→16:30)
[2019-07-13] MEDS: METOPROLOL SUCCINATE 50 MG TAB XL PO SCH (08:48)
--- NOTE | 2019-07-13 09:53 | NUR ---
md lobo person dc tele per pt request
[2019-07-13] MEDS: ACETAMINOPHEN/CODEINE 300MG - 30MG TAB PO PRN ×2 (17:25→23:40)
--- NOTE | 2019-07-13 18:04 | Progress Note ---
DATE: SUBJECTIVE: This is a 68-year-old male, who came in with left-sided shoulder dislocation, status post reduction. The patient is feeling better. Pain is controlled with IV medication. We will switch him to p.o. at this time to see tolerability of pain. The patient also came with hyponatremia. The patient has been seen by Dr. Dillard. Currently, no chest pain. No shortness of breath. Pain in the shoulder. OBJECTIVE: VITAL SIGNS: Temperature 96.7, pulse of 74, respirations of 15, and blood pressure is 149/80. HEENT: Normocephalic. The patient has trauma in his eyes with ecchymosis. CVS: S1 and S2 normal. Regular rate and rhythm. ABDOMEN: Nontender and nondistended. EXTREMITIES: Left lower extremity and low upper extremity in a sling, otherwise no edema present. LABORATORY VALUES: White count is 5.28, hemoglobin of 9.5, and hematocrit of 26.9. Chemistry shows sodium 129, potassium of 3.8, BUN of 12, and creatinine 0.88. MEDICATIONS: The patient is on: 1. Sodium chloride 3 g three times a day. 2. Hydromorphone q.3 hours as needed. 3. Sodium bicarbonate b.i.d. 4. The patient is on metoprolol 50 mg daily. ASSESSMENT: 1. SIADH/hyponatremia. The patient is on sodium tablets and also fluid restriction. 2. Status post shoulder dislocation with reduction. 3. History of hypertension. 4. History of coronary artery disease. 5. History of alcoholic abuse. PLAN: Continue with the same program. Check sodium tomorrow. Further recommendation per clinical course. We will continue to monitor the patient and possible discharge tomorrow depending on the clinical course. MD MARIA ALEJANDRA Anderson/MODL /[id number]
--- NOTE | 2019-07-13 19:00 | NUR ---
Bed side shift report received from morning rn.pt is lyeing in the bed.stable condition.
--- NOTE | 2019-07-13 22:09 | NUR ---
Assessment done.no resp.distress.no pain voiced.left arm supported with brace.bed locked and in lowest position.phone and call light within reach.instructed to call for assistance as needed.
[2019-07-14 00:15] VITALS: BP 146/73
[2019-07-14 06:44] LABS: ANION GAP 11.5 mmol/L (8-16); BLOOD UREA NITROGEN 9 mg/dL (7-26); BUN/CREATININE RATIO 11 (6-25); CALCIUM 8.6 mg/dL (8.4-10.2); CARBON DIOXIDE 27 mmol/L (22-29); CHLORIDE 99 mmol/L (98-107); CREATININE, SERUM 0.82 mg/dL (0.72-1.25); EST GLOMERULAR FILTRATION RATE > 60 ML/MIN (60-); GLUCOSE 104 mg/dL (74-118); POTASSIUM 3.5 mmol/L (3.5-5.1); SODIUM 134 mmol/L (136-145)
--- NOTE | 2019-07-14 07:15 | NUR ---
Bed side shift report given to the oncoming Rn.stable condition.
--- NOTE | 2019-07-14 07:30 | NUR ---
Received patient, a/ox3, in bed, call light within reach, bed in low locked position, will monitor.
--- NOTE | 2019-07-14 07:42 | Progress Note ---
DATE: SUBJECTIVE: A 68-year-old male comes in status post fall with left shoulder dislocation, status post reduction. The patient is pain free. Continued to be on p.o. medications. IV medicine has been stopped. The patient's sodium has improved to 129 the last time, waiting and pending for sodium today. Currently asymptomatic. No chest pain. No shortness of breath. Pain is controlled. OBJECTIVE: VITAL SIGNS: Temperature is 99.7, pulse of 90, respirations of 20, and blood pressure is 146/73. HEENT: Normocephalic, atraumatic. Pupils are reactive to light and accommodation. CVS: S1 and S2 are normal. Regular rate and rhythm. ABDOMEN: Nontender, nondistended. EXTREMITIES: Left upper extremity is in a sling. Positive for tenderness and swelling in the shoulder. LABORATORY VALUES: Pending sodium report. ASSESSMENT: 1. A 68-year-old gentleman with a history of fall, status post reduction of the left shoulder. 2. Hyponatremia. We will discharge the patient on salt tablets. 3. Hypertension. We will keep the patient on metoprolol, taking off his losartan. 4. History of coronary artery disease. 5. History of alcohol intake. We will continue monitoring. The patient will see me in about a week's time. Further recommendation per clinical course. We will continue to monitor the patient as an outpatient. The patient has a followup with Dr. Perry for the left shoulder. MD MARIA ALEJANDRA Anderson/MODL /[id number]
[2019-07-14 08:11] VITALS: BP 150/89
[2019-07-14 08:36] VITALS: BP 150/89
[2019-07-14] MEDS: ACETAMINOPHEN/CODEINE 300MG - 30MG TAB PO PRN (09:11)
[2019-07-14] MEDS: SODIUM BICARBONATE 650 MG TAB PO SCH (09:17)
[2019-07-14] MEDS: METOPROLOL SUCCINATE 50 MG TAB XL PO SCH (09:17)
[2019-07-14] MEDS: SODIUM CHLORIDE 1 GM TAB PO SCH (09:17)
--- NOTE | 2019-07-14 09:52 | NUR ---
Patient alert and responsive, no prescriptions found in the chart for patient. Call to Dr. Cintron and his nurse answered and stated he is not coming by here today and to contact his primary care. Will call attending at this time.
[2019-07-14 13:05] VITALS: BP 144/87
--- NOTE | 2019-07-14 13:24 | NUR ---
Rounds by Dr. Dillard and stated patient does not need sodium tablets anymore and patient given only pain prescription. IV line removed and dressing applied. Provided with discharge summary, contacts provided for f/u appt with Dr. Perry and he cleared patient for discharge.
== END 2019-07-14 13:15 | disposition home or self-care (01) | DRG 645 ==
LOC: ER 00:33 → ERHOLD 05:35 → MED/SURG 07:08
PROVIDERS: ADMIT Family Medicine; ATTEND Family Medicine
PROC: 0RSKXZZ Reposition Left Shoulder Joint, External Approach (ICD-10-PCS; principal; 2019-07-12)
DX: E22.2 Syndrome of inappropriate secretion of antidiuretic hormone (principal); I10 Essential (primary) hypertension; I25.10 Atherosclerotic heart disease of native coronary artery without angina pectoris; S05.90XA Unspecified injury of unspecified eye and orbit, initial encounter; W19.XXXA Unspecified fall, initial encounter; S43.005A Unspecified dislocation of left shoulder joint, initial encounter; E87.6 Hypokalemia; N25.89 Other disorders resulting from impaired renal tubular function
CPT/HCPCS: 36415; 70450; 71045; 72125; 73020; 80048; 80053; 83735; 84100; 84550; 85025; 85610; 85730; 93005; 99284; J1170; J1940; J2405; J2550; J3010; J3411; J7030; Q0162

== ENCOUNTER 2019-08-15 13:55 | Outpatient (RCR) | payer MEDICARE, OTHER ==
[~2019-08-15 13:55] MED LIST changes: +AMLODIPINE BESYL5 MG PO; +ATORVASTATIN CA20 MG PO; +LOSARTAN POTAS100 MG PO
== END 2019-08-19 ==
LOC: PT 13:55
PROVIDERS: ATTEND Orthopaedic Surgery
DX: M25.312 Other instability, left shoulder (principal); S43.004D Unspecified dislocation of right shoulder joint, subsequent encounter; M25.511 Pain in right shoulder; M62.81 Muscle weakness (generalized); M25.611 Stiffness of right shoulder, not elsewhere classified
CPT/HCPCS: 97139

== ENCOUNTER 2019-11-16 14:55 | Outpatient (RCR) | payer MEDICARE, OTHER | END 2019-11-18 | LOC: PT 14:55 | PROVIDERS: ATTEND Orthopaedic Surgery | DX: M25.312 Other instability, left shoulder (principal); S43.005A Unspecified dislocation of left shoulder joint, initial encounter; M62.81 Muscle weakness (generalized); M25.512 Pain in left shoulder ==

== ENCOUNTER 2019-11-20 15:01 | Outpatient (RCR) | payer MEDICARE, OTHER | END 2019-12-19 | LOC: PT 15:01 | PROVIDERS: ATTEND Orthopaedic Surgery | DX: M25.312 Other instability, left shoulder (principal) ==